=== PATIENT | male | born 1990 | race Hispanic/Latino ===

== ENCOUNTER 2024-08-20 03:38 | Emergency (ER) | payer OTHER ==
[2024-08-20] MEDS ORDERED: Boostrix 0.5 ML (Tdap) VIAL (>/=7 yrs of age) ONE (04:13)
[2024-08-20] MEDS ORDERED: Lidocaine 1% PF 5 ML VIAL ONE ×2 (04:13→04:18)
== END 2024-08-20 05:38 | disposition home or self-care (01) ==
LOC: ERS 03:38
DX: S61.012A Laceration without foreign body of left thumb without damage to nail, initial encounter (principal); Z23 Encounter for immunization; W31.89XA Contact with other specified machinery, initial encounter
CPT/HCPCS: 12002; 90471; 90715

== ENCOUNTER 2024-09-01 07:23 | Emergency (ER) | payer SELFPAY | END 2024-09-01 09:10 | disposition home or self-care (01) | LOC: ERS 07:23 | DX: S61.012D Laceration without foreign body of left thumb without damage to nail, subsequent encounter (principal); X58.XXXD Exposure to other specified factors, subsequent encounter ==